=== PATIENT | female | born 1970 | race African-American/Black ===

== ENCOUNTER 2017-08-25 17:00 | Emergency (ER) | payer BC ==
[~2017-08-25] VITALS: Ht 175.3 cm; Wt 129.3 kg
--- NOTE | ~2017-08-25 | EKG ---
[address] [place] [address] ELECTROCARDIOGRAM REPORT Name: AWANYANCY Room #: DEP [facility] [id number] Admission: 08/25/17 Attend Phys: Discharge: 08/25/17 Date of : 68 Report #: [id number] THIS REPORT FOR: //name// [facility] ED Test Date: 2017-08-25 Test Time: 19:18:44 Pat Name: YANCY AWAN Department: Room: Gender: F Transcription Manager: ALEX : 1970 Requested By: Bria Anton Order Number: [id number] MD: Raleigh Kirby Measurements Intervals [place] Rate: 75 P: 49 [place]: 188 QRS: 5 QRSD: 108 T: 48 QT: 387 QTc: 433 Interpretive Statements Sinus rhythm Poor R wave progression Baseline wander in lead(s) V2 Compared to ECG 01/19/2013 14:41:27 Sinus tachycardia no longer present Electronically Signed On 08-26-2017 17:41:30 CDT by Raleigh Kirby [email or web address] <ELECTRONICALLY SIGNED> By: Raleigh Kirby MD, [facility] 08/26/17 1741 17 17 Raleigh Kirby MD, [facility] /EPI
[~2017-08-25 17:00] MED LIST: ALEVE220 MG PO; APAP500 PO; C-10001000 M1 PO; CEFDINIR300 MG PO; FLAGYL500 MG PO; LEVAQUIN 500 M500 M7 PO; LUPRON DEPOT3.75 M2 IM; MULTI VITAMIN1 EACH PO; MULTI-VITAMIN1 EAC1 PO; PROVERA10 MG PO; SLOW FE 160MG160 MG PO; SYMBICORT160 MCG/4. INH; VIBRAMYCIN 100100 MG PO; VIT C 500 MG-E500 MG PO; XARELTO10 M1; XARELTO15 MG; XARELTO20 MG PO; ZYRTEC 10 MG TA10 MG PO
[2017-08-25 18:42] LABS: ABSOLUTE NEUTROPHILS 5.1 thou/uL (1.4-8.2); BASOPHILS 0.8 % (0.0-2.0); EOSINOPHILS 3.1 % (0.0-3.0); HEMATOCRIT 36.2 % (37.0-47.0); HEMOGLOBIN 12.2 gm/dL (12.0-15.0); LYMPHOCYTES 28.5 % (24.0-44.0); MCH 30.1 pg (26.0-34.0); MCHC 33.8 g/dL (28.0-37.0); MCV 89.1 fL (80.0-100.0); MONOCYTES 6.8 % (1.0-8.0); PLATELET COUNT 322 thou/uL (150-400); POLYS 60.8 % (36.0-66.0); RBC 4.07 mil/uL (4.20-5.00); RDW 14.1 % (10.5-14.5); WBC 8.4 thou/uL (4.0-11.0)
[2017-08-25 18:53] LABS: BUN 10 mg/dL (7-18); CALCIUM 9.1 mg/dL (8.5-10.1); CHLORIDE 105 mmol/L (98-107); CO2 28 mmol/L (21-32); CREATININE 0.8 mg/dL (0.6-1.0); GLUCOSE 122 mg/dL (74-106)
[2017-08-25 19:02] LABS: ANION GAP 7 mmol/L (7-16); POTASSIUM 3.4 mmol/L (3.5-5.1); SODIUM 140 mmol/L (136-145); TROPONIN-I < 0.04 ng/mL (<0.06)
== END 2017-08-25 19:36 | disposition home or self-care (01) ==
LOC: ER 17:00
PROVIDERS: Emergency Medicine
DX: R07.89 Other chest pain (principal); Z88.1 Allergy status to other antibiotic agents; Z91.013 Allergy to seafood